=== PATIENT | female | born 1990 | race Caucasian/White ===

== ENCOUNTER → 2018-01-17 | Emergency (ER) | payer OTHER ==
[~2018-01-17] VITALS: Ht 154.9 cm; Wt 74.8 kg
[~2018-01-17] MED LIST: CEFTIN250 MG PO; DICY10CA; KETO10TA2 PO; LEVSIN0.125 MG; PEPCID40 MG PO; PHENERGAN25 MG PO; PREVACID15 MG; URIN D.S. TABLE1 TAB PO; ZYRTEC10 MG PO
== END | disposition home or self-care (01) ==
LOC: ER 23:27
DX: R50.9 Fever, unspecified (principal); R11.10 Vomiting, unspecified

== ENCOUNTER 2019-06-02 15:41 | Emergency (ER) | payer OTHER ==
[~2019-06-02] VITALS: Ht 157.5 cm; Wt 77.1 kg
[2019-06-02] MEDS ORDERED: BREO ELLIPTA I1 EACH IH (16:28)
[2019-06-02] MEDS ORDERED: ALBUTEROL0.63 MG/3 IH (16:28)
[2019-06-02] MEDS ORDERED: SINGULAIR10 MG PO (16:29)
[2019-06-02] MEDS ORDERED: FLONASE16 GM NASAL (16:29)
[2019-06-02] MEDS ORDERED: TUSNEL LIQUID178 ML PO (18:23)
[2019-06-02] MEDS ORDERED: AMOX1TAB5 PO (18:23)
== END 2019-06-02 18:30 | disposition home or self-care (01) ==
LOC: ER 15:41
DX: R05 Cough (principal)

== ENCOUNTER 2024-05-20 08:11 | Outpatient (CLI) | payer OTHER ==
[~2024-05-20 08:11] MED LIST changes: +ALBUTEROL0.63 MG/3 IH; +AMOX1TAB5 PO; +BREO ELLIPTA I1 EACH IH; +FLONASE16 GM NASAL; +SINGULAIR10 MG PO; +TUSNEL LIQUID178 ML PO
== END 2024-05-20 08:13 | disposition home or self-care (01) ==
LOC: PRENATAL 08:11
PROVIDERS: ATTEND Obstetrics & Gynecology Maternal & Fetal Medicine
DX: O35.9XX0 Maternal care for (suspected) fetal abnormality and damage, unspecified, not applicable or unspecified (principal); O24.319 Unspecified pre-existing diabetes mellitus in pregnancy, unspecified trimester; O99.341 Other mental disorders complicating pregnancy, first trimester; O09.519 Supervision of elderly primigravida, unspecified trimester; Z3A.19 19 weeks gestation of pregnancy

== ENCOUNTER 2024-06-17 11:07 | Outpatient (CLI) | payer OTHER | END 2024-06-17 11:40 | disposition home or self-care (01) | LOC: PRENATAL 11:07 | PROVIDERS: ATTEND Obstetrics & Gynecology Maternal & Fetal Medicine | DX: O26.849 Uterine size-date discrepancy, unspecified trimester (principal); O24.319 Unspecified pre-existing diabetes mellitus in pregnancy, unspecified trimester; O09.519 Supervision of elderly primigravida, unspecified trimester; Z3A.23 23 weeks gestation of pregnancy ==

== ENCOUNTER 2024-07-15 10:45 | Outpatient (CLI) | payer OTHER | END 2024-07-15 10:46 | disposition home or self-care (01) | LOC: PRENATAL 10:45 | PROVIDERS: ATTEND Obstetrics & Gynecology Maternal & Fetal Medicine | DX: O26.849 Uterine size-date discrepancy, unspecified trimester (principal); O24.319 Unspecified pre-existing diabetes mellitus in pregnancy, unspecified trimester; O99.343 Other mental disorders complicating pregnancy, third trimester; O09.519 Supervision of elderly primigravida, unspecified trimester; Z3A.27 27 weeks gestation of pregnancy ==

== ENCOUNTER → 2024-08-12 11:12 | Outpatient (CLI) | payer OTHER | END | disposition home or self-care (01) | LOC: PRENATAL 11:12 | PROVIDERS: ATTEND Obstetrics & Gynecology Maternal & Fetal Medicine | DX: O26.849 Uterine size-date discrepancy, unspecified trimester (principal); O36.8199 Decreased fetal movements, unspecified trimester, other fetus; O24.319 Unspecified pre-existing diabetes mellitus in pregnancy, unspecified trimester; O09.519 Supervision of elderly primigravida, unspecified trimester; Z3A.33 33 weeks gestation of pregnancy ==

== ENCOUNTER 2024-09-09 09:31 | Outpatient (CLI) | payer OTHER | END 2024-09-09 09:32 | disposition home or self-care (01) | LOC: PRENATAL 09:31 | PROVIDERS: ATTEND Obstetrics & Gynecology Maternal & Fetal Medicine | DX: O26.849 Uterine size-date discrepancy, unspecified trimester (principal); O24.319 Unspecified pre-existing diabetes mellitus in pregnancy, unspecified trimester; O09.519 Supervision of elderly primigravida, unspecified trimester; Z3A.36 36 weeks gestation of pregnancy ==

== ENCOUNTER 2024-09-23 08:45 | Inpatient (IN) | payer OTHER ==
[~2024-09-23] VITALS: Ht 157.5 cm; Wt 3.2 kg
[2024-09-23 10:44] VITALS: BP 129/88
[2024-09-23] MEDS ORDERED: RINGERS SOLUTION,LACTATED 1,000 ML IV SCH (10:45)
[2024-09-23] MEDS ORDERED: CEFAZOLIN SODIUM 1,000 MG VIAL IV SCH (10:45)
[2024-09-23 10:50] VITALS: BP 129/88; O2SAT 99
[2024-09-23] MEDS ORDERED: ZOLOFT25 MG PO (11:23)
[2024-09-23] MEDS ORDERED: ASA81 MG PO (11:23)
[2024-09-23] MEDS ORDERED: PRENATAL + DHA1 EAC1 PO (11:24)
[2024-09-23] MEDS ORDERED: CLARITIN10 M1 PO (11:24)
[2024-09-23] MEDS ORDERED: HUMULIN N100 UNIT/2 SUBCUTANEO ×2 (11:26)
[2024-09-23] MEDS ORDERED: HUMALOG100 UNIT/2 SUBCUTANEO (11:28)
[2024-09-23 11:40] LABS: HEMATOCRIT 38.3 % (36.0-45.00); HEMOGLOBIN 12.9 g/dL (12.0-15.00); MEAN CELL VOLUME 81.7 fL (80.00-100.00); MEAN CORPUSCULAR HEMOGLOBIN 27.5 pg (27.00-32.0); MEAN CORPUSCULAR HGB CONC 33.6 g/dl (32.0-36.0); PLATELET COUNT 199 K/uL (150-450); RED BLOOD COUNT 4.69 M/uL (4.00-6.00); RED CELL DISTRIBUTION WIDTH 15.4 % (11.5-14.5)
[2024-09-23 11:46] LABS: URINE APPEARANCE Cloudy; URINE BILIRRUBIN Small (NEGATIVE); URINE COLOR Dark Yellow; URINE GLUCOSE Negative (NEGATIVE); URINE LEUKOCYTE Trace; URINE NITRATE Negative; URINE PROTEIN 30 (NEGATIVE)
[2024-09-23 11:50] LABS: URINE BACTERIA 1866.5 uL (0.0-1933); URINE RBC 20.3 uL (0.0-20.8); URINE WBC 27.6 uL (0.0-23.2)
[2024-09-23 11:59] LABS: INR 0.95; PARTIAL THROMBOPLASTIN TIME 28.6 SECONDS (22.0-34.0); PROTHROMBIN TIME 10.4 SECONDS (9.0-11.5)
[2024-09-23 12:10] LABS: URINE CAST 0.73 uL (0.0-1.40); URINE KETONE 40 (NEGATIVE)
[2024-09-23 12:11] LABS: URINE BLOOD TRCES
[2024-09-23 12:56] LABS: ALBUMIN 2.8 gm/dL (3.4-5.0); BILIRUBIN TOTAL 0.43 mg/dL (0.3-1.2); CALCIUM 9.1 mg/dL (8.5-10.1); CREATININE SERUM 0.57 mg/dL (0.55-1.02); GFR 120.7; GLOBULINA 3.5 G/DL (2.4-3.5); POTASSIUM 4.32 mEq/L (3.5-5.1); TOTAL PROTEIN 6.3 gm/dL (6.4-8.2)
[2024-09-23 15:25] VITALS: BP 131/87
[2024-09-23] MEDS ORDERED: PROMETHAZINE HCL 50 MG/ML AMPUL IM PRN (21:00)
[2024-09-23] MEDS ORDERED: MEPERIDINE HCL/PF 50 MG/ML VIAL IM PRN (21:00)
[2024-09-23] MEDS ORDERED: MORPHINE SULFATE 4 MG/ML VIAL IV ONE ×2 (21:45→22:15)
[2024-09-23] MEDS ORDERED: OXYTOCIN 10 UNITS/ML VIAL IV ONE (22:00)
[2024-09-23] MEDS ORDERED: ERYTHROMYCIN BASE OPHT 1GM EACH TUBE OP ONE (22:00)
[2024-09-24 01:51] VITALS: BP 140/80
[2024-09-24 05:38] VITALS: BP 150/80
[2024-09-24 07:34] LABS: HEMATOCRIT 35.5 % (36.0-45.00); HEMOGLOBIN 11.7 g/dL (12.0-15.00); MEAN CELL VOLUME 81.8 fL (80.00-100.00); PLATELET COUNT 186 K/uL (150-450); RED BLOOD COUNT 4.33 M/uL (4.00-6.00); RED CELL DISTRIBUTION WIDTH 15.5 % (11.5-14.5)
[2024-09-24] MEDS ORDERED: OxyCODONE HCL/APAP UD (PERCOCET) PO PRN (08:00)
[2024-09-24] MEDS ORDERED: SIMETHICONE 125 MG CAPSULE PO SCH (09:00)
[2024-09-24] MEDS ORDERED: INSULIN LISPRO 1,000 UNIT/10 ML UNITS SUBCUTANEO SCH ×3 (09:00→21:00)
[2024-09-24] MEDS ORDERED: DOCUSATE SODIUM 100MG CAP PO SCH (09:00)
[2024-09-24] MEDS ORDERED: INSULIN NPH HUMAN ISOPHANE 1,000 UNITS/10 ML UNITS SUBCUTANEO SCH ×2 (09:00→17:00)
[2024-09-24] MEDS ORDERED: PNV,CALCIUM 72/IRON/FOLIC ACID 1 TAB TABLET PO SCH (09:00)
[2024-09-24 14:06] VITALS: BP 150/80
[2024-09-24 16:00] VITALS: BP 130/78
[2024-09-24 23:56] VITALS: BP 136/76
[2024-09-25 08:17] VITALS: BP 140/75
[2024-09-25 16:56] VITALS: BP 135/60
[2024-09-25 21:21] VITALS: BP 135/60
[2024-09-26 00:58] VITALS: BP 132/85
[2024-09-26 07:38] VITALS: BP 135/75
== END 2024-09-26 13:28 | disposition home or self-care (01) | DRG 788 ==
LOC: LDR 10:20 → O/R 19:43 → OB/GYN 21:39
PROVIDERS: ADMIT Obstetrics & Gynecology; ATTEND Obstetrics & Gynecology
PROC: 4A1HXCZ Monitoring of Products of Conception, Cardiac Rate, External Approach (ICD-10-PCS; 2024-09-23)
PROC: 10D00Z1 Extraction of Products of Conception, Low, Open Approach (ICD-10-PCS; principal; 2024-09-23 18:30)
DX: O24.12 Pre-existing type 2 diabetes mellitus, in childbirth (principal); O14.04 Mild to moderate pre-eclampsia, complicating childbirth; E11.8 Type 2 diabetes mellitus with unspecified complications; Z3A.37 37 weeks gestation of pregnancy; Z37.0 Single live birth; Z79.4 Long term (current) use of insulin; Z20.822 Contact with and (suspected) exposure to COVID-19